=== PATIENT | male | born 1995 | race Caucasian/White ===

== ENCOUNTER 2017-09-27 00:42 | Emergency (ER) | payer BC ==
[~2017-09-27] VITALS: Ht 172.7 cm; Wt 72.6 kg
[~2017-09-27 00:42] MED LIST: NAPROSYN500 MG PO; NORCO 5-325 TA1 EACH PO; ONDANSETRON HCL4 M2 PO; PROBIOTIC1 EAC1 PO; THERA-M CAPLET1 EACH; UNICOMPLEX M TA1 TA1 PO; ZANTAC 150MG T150 MG PO
[2017-09-27 01:30] LABS: BASOPHILS 0.6 % (0.0-2.0); EOSINOPHILS 0.9 % (0.0-3.0); LYMPHOCYTES 41.4 % (24.0-44.0); MCH 32.4 pg (26.0-34.0); MCV 92.6 fL (80.0-100.0); MONOCYTES 8.2 % (1.0-8.0); PLATELET COUNT 169 thou/uL (150-400); POLYS 48.9 % (36.0-66.0); RBC 4.32 mil/uL (4.50-6.00); RDW 12.3 % (10.5-14.5)
[2017-09-27 01:32] LABS: CALCIUM 8.7 mg/dL (8.5-10.1); CREATININE 0.9 mg/dL (0.7-1.3); POTASSIUM 3.3 mmol/L (3.5-5.1)
[2017-09-27 01:38] LABS: ALBUMIN 4.4 g/dL (3.4-5.0); DIRECT BILIRUBIN 0.1 mg/dL (<0.1-0.3); TOTAL BILIRUBIN 0.3 mg/dL (<0.1-1.0); TOTAL PROTEIN 7.8 g/dL (6.4-8.2)
[2017-09-27 04:34] VITALS: BP 109/64
== END 2017-09-27 04:36 | disposition home or self-care (01) ==
LOC: ER 00:42
PROVIDERS: Emergency Medicine
DX: K21.9 Gastro-esophageal reflux disease without esophagitis (principal)

== ENCOUNTER 2018-10-29 21:47 | Emergency (ER) | payer BC, OTHER ==
[~2018-10-29] VITALS: Ht 170.2 cm; Wt 84.8 kg
[2018-10-29 21:49] VITALS: BP 122/70
== END 2018-10-29 22:58 | disposition home or self-care (01) ==
LOC: ER 21:47
DX: T81.33XA Disruption of traumatic injury wound repair, initial encounter (principal); Z79.899 Other long term (current) drug therapy; Y92.89 Other specified places as the place of occurrence of the external cause

== ENCOUNTER 2019-01-17 13:58 | Emergency (ER) | payer BC, OTHER ==
[~2019-01-17] VITALS: Ht 172.7 cm; Wt 86.2 kg
[2019-01-17 14:28] LABS: URINE BILIRUBIN NEGATIVE (Negative); URINE BLOOD NEGATIVE (Negative); URINE CLARITY CLEAR; URINE COLOR YELLOW; URINE GLUCOSE-RANDOM* NEGATIVE (Negative); URINE KETONES NEGATIVE (Negative); URINE LEUKOCYTES-REFLEX NEGATIVE (Negative); URINE NITRITE-REFLEX NEGATIVE (Negative); URINE PROTEIN (DIPSTICK) NEGATIVE (Negative); URINE UROBILINOGEN 0.2 E.U./dl (0.2-1.0)
[2019-01-17 14:31] LABS: SSA (PROTEIN CONFIRMATORY) NEGATIVE (Negative)
[2019-01-17] MEDS ORDERED: ADDERALL 30 MG30 MG PO (14:50)
[2019-01-17 14:51] LABS: ABSOLUTE NEUTROPHILS 4.1 thou/uL (1.4-8.2); BASOPHILS 0.7 % (0.0-2.0); EOSINOPHILS 0.7 % (0.0-3.0); HEMATOCRIT 43.3 % (42.0-52.0); LYMPHOCYTES 20.9 % (24.0-44.0); MCH 32.6 pg (26.0-34.0); MCHC 34.7 g/dL (28.0-37.0); MCV 93.8 fL (80.0-100.0); MONOCYTES 6.7 % (1.0-8.0); PLATELET COUNT 194 thou/uL (150-400); RBC 4.61 mil/uL (4.50-6.00); RDW 12.7 % (10.5-14.5); WBC 5.7 thou/uL (4.0-11.0)
[2019-01-17] MEDS ORDERED: OMEPRAZOLE40 MG PO (14:51)
[2019-01-17 14:59] LABS: POTASSIUM 3.4 mmol/L (3.5-5.1)
[2019-01-17 15:06] LABS: TOTAL BILIRUBIN 0.5 mg/dL (<0.1-1.0); TOTAL PROTEIN 7.5 g/dL (6.4-8.2)
[2019-01-17 15:09] LABS: AMP/METHAMP POSITIVE (Negative); BARBITURATES Negative (Negative); BENZODIAZEPINES Negative (Negative); COCAINE Negative (Negative); METHADONE Negative (Negative); OPIATES Negative (Negative); PCP Negative (Negative)
[2019-01-17 16:17] VITALS: BP 139/72
== END 2019-01-17 16:24 | disposition home or self-care (01) ==
LOC: ER 13:58
PROVIDERS: Nurse Practitioner Family
DX: R25.2 Cramp and spasm (principal); J45.909 Unspecified asthma, uncomplicated; Z79.899 Other long term (current) drug therapy

== ENCOUNTER 2020-06-17 19:49 | Inpatient (IN) | payer OTHER ==
[~2020-06-17 19:49] MED LIST changes: +ADDERALL 30 MG30 MG PO; +OMEPRAZOLE40 MG PO
[2020-06-17 20:10] LABS: ABSOLUTE NEUTROPHILS 4.1 thou/uL (1.4-8.2); BASOPHILS 1.2 % (0.0-2.0); EOSINOPHILS 0.5 % (0.0-3.0); HEMATOCRIT 41.9 % (42.0-52.0); HEMOGLOBIN 14.6 gm/dL (14.0-18.0); LYMPHOCYTES 43.1 % (24.0-44.0); MCH 32.5 pg (26.0-34.0); MCHC 34.8 g/dL (28.0-37.0); MCV 93.4 fL (80.0-100.0); MONOCYTES 9.1 % (1.0-8.0); PLATELET COUNT 248 thou/uL (150-400); POLYS 46.1 % (36.0-66.0); RBC 4.48 mil/uL (4.50-6.00); RDW 12.4 % (10.5-14.5); WBC 8.9 thou/uL (4.0-11.0)
[2020-06-17 20:19] LABS: CREATININE 1.1 mg/dL (0.7-1.3); POTASSIUM 3.2 mmol/L (3.5-5.1)
[2020-06-17 20:26] LABS: ALBUMIN 4.2 g/dL (3.4-5.0); TOTAL BILIRUBIN 0.6 mg/dL (0.2-1.0); TOTAL PROTEIN 8.1 g/dL (6.4-8.2)
[2020-06-17 22:37] VITALS: BP 120/71
--- NOTE | 2020-06-17 23:30 | NUR ---
Pt. arrived to the unit from the emergency room accompanied by staff. He is alert and oriented. Right ankle and foot is immobilized in a soft splint and yeny bandage. He does have feeling in the right toes upon touch. He c/o chronic pain to the right lower ankle and has been medicated (see emar) with some relief noted. Admission assessment and history is completed. VSS.
[2020-06-17 23:32] VITALS: BP 122/85
[2020-06-17 23:34] VITALS: BP 120/74
[2020-06-18 04:03] LABS: CALCIUM 8.5 mg/dL (8.5-10.1); POTASSIUM 3.8 mmol/L (3.5-5.1)
[2020-06-18 04:36] LABS: HEMOGLOBIN 13.8 gm/dL (14.0-18.0); MCH 32.2 pg (26.0-34.0); MCHC 33.7 g/dL (28.0-37.0); MCV 95.7 fL (80.0-100.0); RBC 4.29 mil/uL (4.50-6.00); RDW 12.6 % (10.5-14.5); WBC 10.5 thou/uL (4.0-11.0)
[2020-06-18 06:35] LABS: URINE BILIRUBIN NEGATIVE (Negative); URINE BLOOD NEGATIVE (Negative); URINE CLARITY CLEAR; URINE COLOR YELLOW; URINE GLUCOSE-RANDOM* NEGATIVE (Negative); URINE KETONES TRACE (Negative); URINE LEUKOCYTES-REFLEX NEGATIVE (Negative); URINE NITRITE-REFLEX NEGATIVE (Negative); URINE PROTEIN (DIPSTICK) NEGATIVE (Negative); URINE UROBILINOGEN 0.2 E.U./dl (0.2-1.0)
[2020-06-18 08:29] VITALS: BP 141/89
--- NOTE | 2020-06-18 14:51 | NUR ---
Assumed pt care this am, received NPO. right lower ext immobilized with a splint and wrapped with an yeny bandage. Pain is barely manged with medications, pt states this would only given very short relief and would go back up to a 9 ot 10 with the slightest movement. Seen by ortho, placed on a regular diet, additional oral pain medications ordered. Plan is for surgery tomorrow, pt is to be npo tonight midnight onwards, pt is aware. MD informed, medications ordered for break through. Maintained NWB on RLE.
[2020-06-18 16:10] VITALS: BP 133/89
[2020-06-18 20:07] VITALS: BP 133/89
--- NOTE | 2020-06-19 05:01 | NUR ---
Pt. rested quietly at intervals during the night when checked on during frequent rounds. He c/o chronic pain in the right ankle and has been medicated (see emar) with some relief of pain. No c/o nausea.
[2020-06-19 08:49] VITALS: BP 144/100
[2020-06-19 14:21] VITALS: BP 142/96
[2020-06-19 14:57] VITALS: BP 149/104
[2020-06-19 16:11] VITALS: BP 134/94
[2020-06-19 18:56] VITALS: BP 141/95
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
[2020-06-20 07:15] VITALS: BP 144/33
[2020-06-20] MEDS ORDERED: NORCO5 PO (09:50)
[2020-06-20 11:07] VITALS: BP 144/33
--- NOTE | 2020-06-20 11:41 | NUR ---
PT ALERT AND ORIENTED TIMES FOUR. VSS. IVF INFUSING PER ORDER. PT C/O PAIN ORN PAIN MEDICATIONS GIVEN WITH GOOD RELIEF. RIGHT LEG CAST INTACT. PT TOLERATES MEDS AND MEALS. PT WORKED WELL WITH PT. PLAN TO DISCHARGE TODAY. WILL CONTINUE TO MONITOR.
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
--- NOTE | 2020-06-21 09:20 | O ---
[facility] [place] [address] OPERATIVE REPORT Name: SYLVESTER NAYLOR Room #: 458-P [facility] IN M.R.#: [id number] Admission: 06/17/20 Attend Phys: Keny Guzman, Discharge: 06/20/20 Date of : 89 Report #: [id number] THIS REPORT FOR: cc: Toyin Brady MD, Julie MD Kneidel,Gabriel Farah MD ~ DATE OF SERVICE: 06/19/2020 PREOPERATIVE DIAGNOSIS: Left ankle trimalleolar fracture. POSTOPERATIVE DIAGNOSIS: Left ankle trimalleolar fracture. PROCEDURE: Left ankle trimalleolar fracture open reduction and internal fixation. SURGEON: Dr. Gabriel Johnson. CONFERENCE AND EVENT ORGANISER: Roseline Clark. ANESTHESIA: General. ESTIMATED BLOOD LOSS: 10 mL. DRAINS: No drains. TOURNIQUET TIME: One hour. DESCRIPTION OF PROCEDURE: The patient brought to the operating room where he was placed under general anesthesia. Once under adequate general anesthesia, his left lower extremity was prepped and draped in a sterile manner. The extremity was elevated, exsanguinated, tourniquet placed at 300 mmHg. Of note, the patient had multiple fracture blisters about his ankle. These were small blisters. A lateral incision approximately 6 cm in length was made over the distal fibula. This was dissected down to the fibula fracture site, which was then identified and exposed and subsequent reduction of the fracture was achieved with a bone reduction tenaculum and the actual fibular plate, which was placed. A one-third tubular plate, 6 holes in length, was then placed. Each of the holes was filled proximal to the fracture. This was a transverse fracture, ____ fracture with a cortical 3.5 mm screws placed under fluoroscopic guidance. Similarly distally, 3 cancellous screws were placed for fixation. Excellent reduction and alignment was achieved once complete. We then proceeded medially and another separate 6 cm incision was made over the medial shear type fracture of the medial malleolus. This was subsequently reduced with a large bone reduction tenaculum and a smaller bone reduction tenaculum to align with the tibia fracture line. Once reduced, three 4.0 cannulated screws were placed; [address] [address] OPERATIVE REPORT Name: SYLVESTER NAYLOR [place] Room #: 458-P [facility] IN .R.#: [id number] Admission: 06/17/20 Attend Phys: Keny Guzman, Discharge: 06/20/20 Date of : 89 Report #: [id number] transverse first and then 2 from the tip of the medial malleolus into the tibia. Excellent fixation and alignment was achieved once complete. There was displaced posterior fragment, which was then subsequently reduced utilizing bone reduction tenaculum by dissecting just posterior to the tibia keeping the clamp on the tibial surface until it was at the fracture site. The fracture was then reduced with a bone reduction tenaculum and subsequently fixed with a single 4.0 cannulated screw from anterior to posterior, placed under fluoroscopic guidance. Excellent fixation and alignment was achieved. Once complete, the wounds were then irrigated copiously and closed with 2-0 Vicryl in the subcutaneous tissues and truman laterally and 3-0 nylon medial were placed in the skin. The wound was dressed with Xeroform, 4 x 4s, and sterile soft compressive dressing and short leg splint was then placed. Tourniquet was let down at approximately 1 hour. Toes were pink and warm with good capillary refill. There were no complications from the procedure. The patient tolerated the procedure well and was taken to recovery room without incident. <ELECTRONICALLY SIGNED> By: Gabriel Johnson MD 06/21/20 0920 [id number] Gabriel Johnson MD /nt
--- NOTE | 2020-06-28 11:38 | O ---
[facility] [place] [address] OPERATIVE REPORT Name: SYLVESTER NAYLOR Room #: 458-P [facility] IN M.R.#: [id number] Admission: 06/17/20 Attend Phys: Keny Guzman, Discharge: 06/20/20 Date of : 89 Report #: [id number] THIS REPORT FOR: cc: Toyin Brady MD, Julie MD Kneidel,Gabriel Farah MD ~ DATE OF SERVICE: 06/19/2020 ADDENDUM This is an addendum and correction to the patient's operative report for surgery dated 06/19/2020. The surgery was on his right lower extremity, it was a right trimalleolar fracture and a right ankle open reduction and internal fixation of trimalleolar fracture. <ELECTRONICALLY SIGNED> By: Gabriel Johnson MD 06/28/20 1138 [id number] 1335 Gabriel Johnson MD /nt
== END 2020-06-20 13:36 | disposition home or self-care (01) | DRG 494 ==
LOC: ER 19:49 → EROBS 21:44 → 4W 21:44
PROVIDERS: Nurse Practitioner; ADMIT Surgery; ATTEND Surgery
PROC: 0QSG04Z Reposition Right Tibia with Internal Fixation Device, Open Approach (ICD-10-PCS; principal; 2020-06-17)
PROC: 0QSJ04Z Reposition Right Fibula with Internal Fixation Device, Open Approach (ICD-10-PCS; principal; 2020-06-17)
PROC: 2W3LX1Z Immobilization of Right Lower Extremity using Splint (ICD-10-PCS; principal; 2020-06-17)
DX: S82.851A Displaced trimalleolar fracture of right lower leg, initial encounter for closed fracture (principal); S82.421A Displaced transverse fracture of shaft of right fibula, initial encounter for closed fracture; E87.6 Hypokalemia; D50.0 Iron deficiency anemia secondary to blood loss (chronic); Z20.822 Contact with and (suspected) exposure to COVID-19; Z79.899 Other long term (current) drug therapy; V89.2XXA Person injured in unspecified motor-vehicle accident, traffic, initial encounter; Y93.89 Activity, other specified; Y92.89 Other specified places as the place of occurrence of the external cause; Y99.8 Other external cause status
CPT/HCPCS: 10045; 10047; 50010; 50101; 50343; 50386; 51122; 51412; 56524; 56527; 56667; 57091; 57180; 70005